=== PATIENT | male | born 1970 | race African-American/Black ===

== ENCOUNTER 2021-06-12 13:30 | Emergency (ER) | payer OTHER ==
[~2021-06-12] VITALS: Ht 160 cm; Wt 74.1 kg
[2021-06-12 13:31] VITALS: BP 123/81
[2021-06-12] MEDS ORDERED: ATEN25TA PO (13:38)
== END 2021-06-12 14:42 | disposition home or self-care (01) ==
LOC: M ED 13:30
DX: U07.1 COVID-19 (principal); J02.9 Acute pharyngitis, unspecified; I10 Essential (primary) hypertension

== ENCOUNTER 2022-10-24 00:39 | Emergency (ER) | payer OTHER ==
[~2022-10-24] VITALS: Ht 160 cm; Wt 75.0 kg
[~2022-10-24 00:39] MED LIST: ATEN25TA PO
[2022-10-24 01:56] LABS: BASO % 1.1 % (0.0-1.0); EOS # 0.1 10^3/uL (0.0-0.5); EOS % 2.4 % (0.0-3.0); HEMATOCRIT 47.6 % (42.0-52.0); LYMPH # 1.2 10^3/uL (1.5-5.0); LYMPH % 32.2 % (24.0-44.0); MEAN CORPUSCULAR HEMOGLOBIN 28.5 pg (27.0-33.0); MEAN CORPUSCULAR HGB CONC 35.7 g/dl (32.0-36.5); MEAN CORPUSCULAR VOLUME 79.7 fl (80.0-96.0); MONO # 0.4 10^3/uL (0.0-0.8); MONO % 9.4 % (2.0-8.0); NEUTROPHILS % 54.6 % (36.0-66.0); PLATELET COUNT, AUTOMATED 203 10^3/uL (150-450); RED BLOOD COUNT 5.97 10^6/uL (4.30-6.10); WHITE BLOOD COUNT 3.7 10^3/uL (4.0-10.0)
[2022-10-24 02:22] LABS: APPEARANCE, URINE CLEAR (CLEAR); BACTERIA, URINE AUTO NEGATIVE (NEGATIVE); BILIRUBIN, URINE AUTO NEGATIVE (NEGATIVE); BLOOD, URINE BLOOD NEGATIVE (NEGATIVE); COLOR, URINE YELLOW (YELLOW); GLUCOSE, URINE (UA) AUTO NEGATIVE (NEGATIVE); KETONE, URINE AUTO TRACE mg/dL (NEGATIVE); LEUKOCYTE ESTERASE, URINE AUTO NEGATIVE (NEGATIVE); MUCUS, URINE SMALL (NEGATIVE); NITRITE, URINE AUTO NEGATIVE (NEGATIVE); PROTEIN, URINE AUTO NEGATIVE (NEGATIVE); RBC, URINE AUTO 0 /HPF (0-3); SPECIFIC GRAVITY URINE AUTO 1.016 (1.002-1.035); SQUAMOUS EPITHELIAL CELL UR AU 0 /HPF (0-6); UROBILINOGEN, URINE AUTO 0.2 mg/dL (0.0-2.0); WBC, URINE AUTO 0 /HPF (0-3)
[2022-10-24 02:23] LABS: ALBUMIN 4.3 G/DL (3.2-5.2); ALKALINE PHOSPHATASE 79 U/L (46-116); ALT/SGPT 53 U/L (7.0-40); AST/SGOT 24 U/L (<34); BILIRUBIN,TOTAL 1.3 MG/DL (0.3-1.2); BLOOD UREA NITROGEN 12 MG/DL (9-23); CALCIUM LEVEL 10.6 MG/DL (8.5-10.1); CARBON DIOXIDE LEVEL 23 MMOL/L (20-31); CHLORIDE LEVEL 100 MMOL/L (98-107); CREATININE FOR GFR 0.88 MG/DL (0.70-1.30); GLOMERULAR FILTRATION RATE > 60.0 (>56); GLUCOSE, FASTING 151 MG/DL (60-100); SODIUM LEVEL 132 MMOL/L (136-145); TOTAL PROTEIN 7.5 G/DL (5.7-8.2)
[2022-10-24 04:34] LABS: CK-MB VALUE MASS < 1.0 NG/ML (<3.6)
[2022-10-24 04:43] LABS: CPK CREATINE PHOSPHOKINASE 179 U/L (46-171); MB/CK RELATIVE INDEX 0.55 (< OR =4)
[2022-10-24] MEDS ORDERED: NS 1,000 ML IV ONE (06:50)
[2022-10-24] MEDS ORDERED: ONDANSETRON 4MG 2ML VIAL IV ONE (06:50)
[2022-10-24] MEDS ORDERED: KETOROLAC 30 MG/ML 1ML VIAL IV ONE (06:50)
[2022-10-24 07:35] LABS: LIPASE 29 U/L (12-53)
[2022-10-24 07:37] LABS: BILIRUBIN,DIRECT 0.3 MG/DL (<0.4)
[2022-10-24] MEDS ORDERED: PIPERACILLIN/TAZOBACTAM SOD 3.375 GM in D5W MINI-BAG PLUS 50 ML IV ONE (09:40)
[2022-10-24] MEDS ORDERED: HOME MED LIST COMPLETE! XX SCH (10:05)
[2022-10-24] MEDS ORDERED: LR 1,000 ML IV SCH (11:40)
[2022-10-24] MEDS ORDERED: AMOX875T2 PO (13:12)
[2022-10-24 13:25] VITALS: BP 126/77; TEMP 97; O2SAT 99
== END 2022-10-24 13:31 | disposition home or self-care (01) ==
LOC: M ED 00:39
DX: K35.80 Unspecified acute appendicitis (principal); D72.819 Decreased white blood cell count, unspecified; K76.0 Fatty (change of) liver, not elsewhere classified; Z79.899 Other long term (current) drug therapy
CPT/HCPCS: 74018; 74176; 76705; 80053; 81001; 82248; 82550; 82553; 83690; 84484; 85025; 87635; 93005; 96361; 96365; 96375; 99284; J1885; J2405; J2543